=== PATIENT | female | born 2000 | race Caucasian/White ===

== ENCOUNTER 2024-10-28 18:03 | Day surgery (SDC) | payer BC, MEDICAID ==
[2024-10-28] MEDS ORDERED: hydrALAZINE 20 MG/ML VIAL SLOW IVP PRN (18:46)
[2024-10-28 18:49] VITALS: BMI 20.9
[2024-10-28 20:04] LABS: Fetal Membranes Rupture No Membranes Rupture (No Rupture)
== END 2024-10-28 20:30 | disposition home or self-care (01) ==
LOC: CSHLD/OP 18:03
PROVIDERS: ATTEND Obstetrics & Gynecology
DX: Z03.71 Encounter for suspected problem with amniotic cavity and membrane ruled out (principal); O99.353 Diseases of the nervous system complicating pregnancy, third trimester; G43.909 Migraine, unspecified, not intractable, without status migrainosus; O98.813 Other maternal infectious and parasitic diseases complicating pregnancy, third trimester; A74.9 Chlamydial infection, unspecified; O98.513 Other viral diseases complicating pregnancy, third trimester; B00.9 Herpesviral infection, unspecified; O23.593 Infection of other part of genital tract in pregnancy, third trimester; N89.8 Other specified noninflammatory disorders of vagina; Z79.899 Other long term (current) drug therapy; Z3A.36 36 weeks gestation of pregnancy
CPT/HCPCS: 84112; 87480; 87510; 87660

== ENCOUNTER 2024-11-17 12:16 | Emergency (ER) | payer BC, MEDICAID | END 2024-11-17 14:54 | disposition home or self-care (01) | LOC: CSHERS 12:16 | DX: O99.513 Diseases of the respiratory system complicating pregnancy, third trimester (principal); O99.332 Smoking (tobacco) complicating pregnancy, second trimester; F17.290 Nicotine dependence, other tobacco product, uncomplicated; Z3A.39 39 weeks gestation of pregnancy | CPT/HCPCS: 87081; 87428; 87430; 99283 ==

== ENCOUNTER 2024-11-24 11:37 | Day surgery (SDC) | payer BC, MEDICAID ==
[2024-11-24 11:56] VITALS: BMI 21.8
== END 2024-11-24 14:11 | disposition home health service (06) ==
LOC: CSHLD/OP 11:37
PROVIDERS: ATTEND Obstetrics & Gynecology
DX: O47.1 False labor at or after 37 completed weeks of gestation (principal); O99.013 Anemia complicating pregnancy, third trimester; D50.9 Iron deficiency anemia, unspecified; O98.513 Other viral diseases complicating pregnancy, third trimester; B00.9 Herpesviral infection, unspecified; O99.353 Diseases of the nervous system complicating pregnancy, third trimester; G43.909 Migraine, unspecified, not intractable, without status migrainosus; Z3A.40 40 weeks gestation of pregnancy; Z79.899 Other long term (current) drug therapy

== ENCOUNTER 2024-11-25 02:30 | Inpatient (IN) | payer BC, MEDICAID ==
[2024-11-25 02:58] VITALS: BMI 21.8
[2024-11-25] MEDS: Acetaminophen 500 MG TAB PO PRN (04:49)
[2024-11-25] MEDS: Cyclobenzaprine 10 MG TAB PO SCH (04:50)
[2024-11-25] MEDS ORDERED: Docusate 100 MG CAP PO PRN (06:14)
[2024-11-25] MEDS ORDERED: Tranexamic Acid 1,000 MG/10 ML VIAL IVP PRN (06:14)
[2024-11-25] MEDS ORDERED: hydrALAZINE 20 MG/ML VIAL SLOW IVP PRN ×2 (06:14→21:34)
[2024-11-25] MEDS ORDERED: Misoprostol 200 MCG TAB PR PRN (06:14)
[2024-11-25] MEDS ORDERED: Carboprost 250 MCG/ML AMP IM PRN (06:14)
[2024-11-25] MEDS ORDERED: Lidocaine 1% (PF) 30 ML VIAL SC PRN (06:14)
[2024-11-25] MEDS ORDERED: Promethazine HCl 25 MG/ML VIAL IM PRN ×2 (06:14→08:12)
[2024-11-25] MEDS ORDERED: Methylergonovine 0.2 MG/ML VIAL IM PRN (06:14)
[2024-11-25] MEDS ORDERED: Oxytocin 30 units/NS 500 ML 500 ML IV SCH ×2 (06:15→22:00)
[2024-11-25] MEDS ORDERED: Ibuprofen 800 MG TAB PO PRN (06:16)
[2024-11-25 06:51] LABS: Bilirubin Neg (Negative); Blood, Urine Negative (Negative); Clarity Clear (Clear); Glucose, Urine (Dipstick) Normal (Negative); Ketone, Urine Negative (Negative); Leukocyte 25 (Negative); Nitrite Negative (Negative); Protein, Urine (Dipstick) Negative (Neg-Trace); Urobilinogen Normal mg/dL (Less than 2)
[2024-11-25 07:13] LABS: Bacteria/HPF Rare-Few HPF (None Seen); RBC/HPF 0-3 HPF (0-3); Squamous Epithelial 0-3 HPF (0-3); WBC/HPF 0-3 HPF (0-3)
[2024-11-25 07:28] LABS: Hematocrit 38.8 % (34.9-44.5); Hemoglobin 13.4 g/dL (12.0-15.5); Mean Corpuscular HGB CONC 34.5 g/dL (32.0-36.0); Mean Corpuscular Hemoglobin 32.5 pg (27.0-33.0); Mean Corpuscular Volume 94.2 fL (81.6-98.3); RBC Distribution Width 14.3 % (11.5-14.5); Red Blood Cell (RBC) Count 4.12 10x6/uL (3.90-5.03); White Blood Cell (WBC) Count 10.94 10x3/uL (3.5-10.5)
[2024-11-25 07:29] LABS: Platelet Count 117 10x3/uL (130-400)
[2024-11-25 07:53] LABS: HBsAg Index 0.16 S/CO (0-0.99); Hep B Surf Ag - L&D Non-Reactive S/CO (NonReactive)
[2024-11-25 07:55] LABS: Syphilis Antibody Nonreactive (Nonreactive); Syphilis Antibody Index 0.04 S/CO (<1.00 Non-Reactive)
[2024-11-25] MEDS ORDERED: diphenhydrAMINE 50 MG/ML VIAL IVP PRN (08:12)
[2024-11-25] MEDS ORDERED: Acetaminophen 325 MG TAB PO PRN (08:12)
[2024-11-25] MEDS ORDERED: Moisturizing Cream (Eucerin) 113 GM JAR TOP PRN (08:12)
[2024-11-25] MEDS ORDERED: ePHEDrine Sulfate 50 MG/10 ML VIAL SLOW IVP PRN (08:12)
[2024-11-25] MEDS ORDERED: Naloxone HCl 0.4 mg/ml Vial IVP PRN ×2 (08:12)
[2024-11-25] MEDS ORDERED: Ondansetron PF 4 MG/2 ML Vial IVP PRN (08:12)
[2024-11-25] MEDS ORDERED: Lactated Ringer's 500 ML IV PRN (08:12)
[2024-11-25] MEDS ORDERED: Communication Order-Pharmacy FS SCH (08:15)
[2024-11-25] MEDS: fentaNYL 2 mcg/Ropivacaine 0.2% Epidural 100 ML CADD EPIDURAL SCH (08:43)
[2024-11-25] MEDS: Oxytocin 30 units/NS 500 ML 500 ML IV SCH (11:24)
[2024-11-25] MEDS: Ondansetron PF 4 MG/2 ML Vial IVP PRN (13:44)
[2024-11-25] MEDS: fentaNYL/Ropivacaine Epidural 100 ML ONE (19:18)
[2024-11-25] MEDS: Morphine PF 10 MG/10 ML VIAL ONE (19:18)
[2024-11-25] MEDS: Lactated Ringer's 1,000 ML IV SCH (19:18)
[2024-11-25] MEDS: Phenylephrine 40 MG/NS 250 ML 0 ML ONE (19:18)
[2024-11-25] MEDS: Dexmedetomidine 200 MCG/2 ML VIAL ONE (19:18)
[2024-11-25 21:22] LABS: HIV (1/2) Antibody/Antigen Non-Reactive (NonReactive); HIV 1/2 INDEX 0.09 S/CO (<1.00)
[2024-11-25] MEDS ORDERED: Bisacodyl 10 MG SUPP PR PRN (21:34)
[2024-11-25] MEDS ORDERED: Misoprostol 200 MCG TAB VAG PRN (21:34)
[2024-11-25] MEDS ORDERED: Boostrix 0.5 ML (Tdap) VIAL (>/=7 yrs of age) IM ONE (21:34)
[2024-11-25] MEDS ORDERED: Milk Of Magnesia 30 ML UDCUP PO PRN (21:34)
[2024-11-25] MEDS: Ibuprofen 800 MG TAB PO SCH (22:17)
[2024-11-25] MEDS: Docusate 100 MG CAP PO SCH (22:18)
[2024-11-25] MEDS: Benzocaine-Menthol 82.5 ML CAN TOP PRN (22:19)
[2024-11-26] MEDS: Docusate 100 MG CAP PO SCH (08:55)
[2024-11-26] MEDS: Ferrous Sulfate 325 MG TAB PO SCH (08:55)
[2024-11-26] MEDS: Prenatal Vitamin 1 TAB PO SCH (08:55)
[2024-11-27 07:46] VITALS: BP 113/68; TEMP 98
== END 2024-11-27 18:25 | disposition home or self-care (01) | DRG 806 ==
LOC: CSHLD/OP 02:30 → CSHLD 06:17 → CSHPP 21:18
PROVIDERS: ADMIT Family Medicine; ATTEND Obstetrics & Gynecology
PROC: 10E0XZZ Delivery of Products of Conception, External Approach (ICD-10-PCS; principal; 2024-11-25)
PROC: 0KQM0ZZ Repair Perineum Muscle, Open Approach (ICD-10-PCS; 2024-11-25)
PROC: 10907ZC Drainage of Amniotic Fluid, Therapeutic from Products of Conception, Via Natural or Artificial Opening (ICD-10-PCS; 2024-11-25)
DX: O99.02 Anemia complicating childbirth (principal); O98.52 Other viral diseases complicating childbirth; Z37.0 Single live birth; B00.9 Herpesviral infection, unspecified; Z3A.40 40 weeks gestation of pregnancy; O70.1 Second degree perineal laceration during delivery; O48.0 Post-term pregnancy
CPT/HCPCS: 36415; 51702; 81001; 85027; 86780; 86850; 86900; 86901; 87086; 87340; 87389; 99285; J2274; J2405; J2590

== ENCOUNTER 2025-05-23 18:38 | Emergency (ER) | payer BC ==
[~2025-05-23 18:38] MED LIST: Iopamidol 300 61% 100 ML VIAL FS ONE
[2025-05-23 20:17] LABS: #Basophils Less than 0.03 10x3/uL (0.0-0.2); #Eosinophils 0.09 10x3/uL (0.0-0.5); #Monocytes 0.59 10x3/uL (0.0-1.1); #Neutrophils 4.18 10x3/uL (1.5-8.4); %Basophils 0.3 % (0.0-2.0); %Eosinophils 1.3 % (0.0-6.0); %Lymphocytes 27.0 % (18.0-47.0); %Monocytes 8.8 % (0.0-10.0); %Neutrophils 62.5 % (40.0-75.0); Hematocrit 40.0 % (34.9-44.5); Hemoglobin 14.0 g/dL (12.0-15.5); Mean Corpuscular Hemoglobin 32.0 pg (27.0-33.0); Mean Corpuscular Volume 91.5 fL (81.6-98.3); Platelet Count 170 10x3/uL (150-450); Red Blood Cell (RBC) Count 4.37 10x6/uL (3.90-5.03); White Blood Cell (WBC) Count 6.70 10x3/uL (3.5-10.5)
[2025-05-23] MEDS ORDERED: Ondansetron PF 4 MG/2 ML Vial ONE (20:21)
[2025-05-23 20:27] LABS: ALT (SGPT) 22 U/L (Less than 34); AST (SGOT) 32 U/L (11-34); Albumin 4.1 g/dL (3.1-4.5); Alkaline Phosphatase 61 U/L (40-110); Anion Gap 19 mmol/L (10-20); BUN (Urea Nitrogen) 9 mg/dL (7.0-18.7); Bilirubin, Total 0.7 mg/dL (0.3-1.2); Calc. Creatinine Clearance 0 mL/min (70-130); Calcium 8.9 mg/dL (7.8-10.44); Carbon Dioxide 20 mmol/L (22-29); Chloride 104 mmol/L (98-107); Globulin 3.2 g/dL (2.4-3.5); Glucose 88 mg/dL (70-105); Lipase 43 U/L (8-78); Potassium 3.9 mmol/L (3.5-5.1); Sodium 139 mmol/L (136-145)
[2025-05-23 20:49] LABS: Pregnancy Test - Urine (BHCG) Negative (Negative); Pregu Control Background? CLEAR/WHITE (CLR/WHITE); Pregu Control Bar Appear? YES (CONTROL BAR)
== END 2025-05-23 22:38 | disposition home or self-care (01) ==
LOC: CSHERS 18:38
DX: K59.00 Constipation, unspecified (principal); F17.290 Nicotine dependence, other tobacco product, uncomplicated
CPT/HCPCS: 74177; 80053; 81025; 83690; 85025; 96361; 96374; J2405